=== PATIENT | female | born 1965 | race Caucasian/White ===

== ENCOUNTER 2025-02-12 12:07 | Emergency (ER) | payer BC, SELFPAY ==
[2025-02-12] VITALS (20 sets, daily range): BP systolic 121–154; BP diastolic 84–117; PULSE 51–157; RESP 0–21; TEMP 36.4; O2SAT 96–100; BMI 26.6
--- OUTSIDE RECORDS SUMMARY | 2025-02-12 12:10 | XMS_ITS | Clinical Summary ---
Author Organization [facility] Address [address] [place] [address] Care Team Providers Care [employer] Name Role Phone Ashley Coy Primary Care Provider Allergies Active Allergy Reactions Criticality Noted Date Comments Penicillins Rash,*Unknown - Childhood Rxn Unknown 04/19 Medications multivitamin folic acid 0.4 mg Take 1 Tablet by mouth once daily. Active aspirin (ECOTRIN) 81 mg enteric coated tabletIndications :Paroxysmal atrial fibrillation (HC) Take 1 Tablet (81 mg) by mouth once daily. 0 01/27/2023 Active valsartan (Diovan) 80 mg tabletIndications :HTN (hypertension) Take 1 Tablet (80 mg) by mouth two times daily. 180 Tablet 3 08/01/2024 Active carvediloL (COREG) 12.5 mg tabletIndications :Atrial fibrillation, unspecified type (HC),Cardiomyopat hy, unspecified type (HC) Take 1 Tablet (12.5 mg) by mouth two times daily. 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 Atrial fibrillation with RVR 09/10/2021 Cardiomyopathy 09/10/2021 Encounters Date Type Department Care Team Description 02/12/[address] [place] [address] Ben Talbot MD Appointment Request (Ashley Coy / Ben Talbot ) 02/12/2025 Nurse Triage [facility] [address] [facility] [address] Ashley Coy PA Irregular Heart Beat 02/09/2025 Nurse Triage [facility] [address] [facility] [address] Ashley Coy PA Fast Heartbeat from Last 3 Months Immunizations Immunization Administration Dates Next Due COVID-19 vaccine ([employer] 30mcg/0.3mL) PF, MDV 08/21/2021,12/07/2020,11/16/2020 Influenza, IIV4 06/27/2022,06/19/2021 Influenza, IIV4 (=>6mos) MDV 05/17/2020 Td (Age >=7 Years) 06/23/2001 Tdap 01/01/2022 Family History Medical History Relation Name Comments Cancer Brother Evan Lympho ma Cancer Father Kidney cancer, removed 1 kidney Coronary artery disease Father Cancer-breast Mother Cancer-colon Neg. 1 Heart Disease Neg. 2 Cancer-breast Sister Relation Name Status Comments Brother Father Mother Neg. 1 Neg. 2 Sister Social History Tobacco Use Types Packs/Day Years Used Date Smoking Tobacco: Never Smokeless Tobacco: Never Tobacco Cessation:Counseling Given: Yes Alcohol Use Standard Drinks/Week Comments Yes 0 (1 standard drink = 0.6 oz pure alcohol) Alcoholic Drinks/day: beer on the weekends Financial Resource Strain Answer Date R ecorded Difficulty of Paying Living Expenses Not on file 09/10/2021 Difficulty of Paying Living Expenses Not on file 09/10/2021 Comments No Sex and Gender Information Value Date Recorded Sex Assigned at Not on file Legal Sex Female 6:04 AM PHOTO CHECKER Gender Identity Not on file Sexual Orientation Not on file Obstetrics History Last Filed Vital Signs Vital Sign Reading Time Taken Comments Blood Pressure 170/93 08/01/2024 3:33 PM PHOTO CHECKER Pulse 69 08/01/2024 3:33 PM PHOTO CHECKER Temperature 36.7 C (98.1 F) 12/23/2021 6:34 AM CDT Respiratory Rate 16 12/23/2021 6:34 AM CDT Oxygen Saturation 99% 08/01/2024 3:33 PM PHOTO CHECKER Inhaled Oxygen Concentration - - Weight 74.8 kg (165 lb) 08/01/2024 3:33 PM PHOTO CHECKER Height 165.1 cm (5' 5) 03/30/2022 2:16 PM CDT Body Mass Index 27.46 03/30/2022 2:16 PM CDT Plan of Treatment Upcoming Encounters Date Type Department Care Team (Late st Contact Info) Description 02/13/2025 9:40 AM CDT Office Visit [facility] [address] [place] [address] Stephanie Jaramillo MD [address] [place] [address] Health Maintenance Due Date Last Done Comments Depression screening for age 12+ 1976 HIV for age 15-65 1979 Hepatitis C screening for age 18-79 1982 Pneumococcal series for age 50+ (1 of 2 - PCV) 1983 Colonoscopy through age 75 2009 Pap test for age 21-65 03/18/2013 03/18/2010, 2009 Zoster (shingles) series for age 50+ (1 of 2) 2014 BMI (ht and wt on same day) for age 18+ 03/30/2023 03/30/2022, 12/05/2021, 09/17/2021 COVID-19 vaccine series ( season) 2024 08/21/2021, 12/07/2020, 11/16/2020 Mammogram for age 45-75 02/17/2025 02/18/20 24, 12/30/2022, 07/28/2018, Additional history exists Influenza Vaccine (Season Ended) 2025 06/27/2022, 06/19/2021, 05/17/2020 Lipids for age 45-75 09/11/2026 09/11/2021, 03/06/20 10 Tetanus booster 01/02/2032 01/01/2022, 06/23/2001 RSV vaccine for adults or (1 - 1-dose 75+ series) 2039 Tdap Completed 01/01/2022 Hepatitis B series for 19+ Aged Out N o longer eligible based on patient's age to complete this topic Procedures Procedure Name Priority Date/Time Associated Diagnosis Comments XR MAMMO BILAT SCREENING Routine 02/18/2024 9:56 AM CDT Visit for screening mammogram LIPID PANEL Early AM 09/11/2021 6:59 AM PHOTO CHECKER [employer]ANCIAL [employer]ID DIRECTOR THIN PREP PAP SCREEN IMAGED Routine 03/18/2010 2:06 PM CDT Periodic pelvic examination from Last 3 Months or Most Recently Relevant to Health Maintenance Results * XR MAMMO BILAT SCREENING (02/18/2024 9:56 AM CDT) Anatomical Region Laterality Modality BREASTS, Breast Left, Breast Right Bilateral Mammography Impressions 02/21/2024 11:08 AM CDT There is no radiographic evidence for malignancy. Recommend annual mammograms. MAMMOGRAM ASSESSMENT: ACR 1 Negative PATIENTS: You will also receive a letter with your examination results in an easy to read format. If you have questions about your results, please contact your referring provider. Narrative 02/21/2024 11:08 AM CDT For Patients: As a result of the Century Cures Act, medical imaging exams and procedure reports are released immediately into your electronic medical record. You may view this report before your referring provider. If you have questions, please contact your health care provider. XR MAMMO BILAT SCREENING [[id number]] CLINICAL HISTORY: This is an asymptomatic 58 y.o. patient. INDICATION FOR EXAM: Mammogram Screening. TECHNIQUE: CC & MLO views were obtained. This study was evaluated with the assistance of Computer-Aided Detection. COMPARISON FILM: Yes 12/30/22 [employer] SE[employer] Navigation 07/28/18 FINDINGS: The breasts are heterogeneously dense, which may obscure small masses. There are no dominant masses, suspicious micro calcifications or areas of architectural distortion. Ashley MARTIN MAMMO Final R esult * Lipid Panel AM (09/11/2021 6:59 AM PHOTO CHECKER) CHOLESTEROL,TOTAL 184 100 - 199 mg/dL 09/11/2021 7:56 AM PHOTO CHECKER [facility] TRIGLYCERIDES 68 <150 mg/dL 09/11/2021 7:56 AM PHOTO CHECKER [facility] HDL CHOLESTEROL 71 >40 mg/dL 7:56 AM PHOTO CHECKER [facility] NON-HDL CHOLESTEROL 113 <145 mg/dl 09/11/2021 7:56 AM PHOTO CHECKER [facility] CHOL/HDL RATIO 2.59 <4.50 09/11/2021 7:56 AM PHOTO CHECKER [facility] LDL CHOLESTEROL 99 <=130 mg/dL 09/11/2021 7:56 AM PHOTO CHECKER [facility] VLDL CHOLESTEROL 14 <=30 mg/dL 09/11/2021 7:56 AM PHOTO CHECKER [facility] PROVIDER ORDERED STATUS RANDOM 09/11/2021 7:56 AM PHOTO CHECKER [facility] Blood BLOOD SPECIMEN / Unknown Venipuncture / Unknown 09/11/2021 6:59 AM PHOTO CHECKER 09/11/2021 7:25 AM PHOTO CHECKER us Cosme Peng MD CHEMISTRY Final Res ult [facility] [address] [place] [address], * (ABNORMAL) Pap Screening (03/18/2010 2:06 PM CDT) CYTOLOGY CYTOPATHOLOGY REPORT [facility] Status: Final Status [id number] CLINICAL INFORMATION Last Date of LMP :03/05/10 Last Pap Date :unsure Last Pap Result :NIL ABN Lamar/Bx Past 5 YRS :None Hormone Usage :None Menstrual Status :Regular Periods Lamar/Bx done today :No Additional Information :None given HPV Request :HPV if ASCUS ANCILLARY TESTING :HPV testing ordered. See Separate Report. SPECIMEN SOURCE :Cervical/vagina l ThinPrep Vial, screening SPECIMEN ADEQUACY :Satisfactory for evaluation Endocervical component present. INTERPRETATION/R ESULT Atypical squamous cells of undetermined significance (ASCUS) Cytology 1st Screener :gn Signed by : David Henry M.D. This specimen was screened by the FDA approved ThinPrep Imaging System and manually reviewed. NOTE: The Pap test is a screening technique, not a diagnostic procedure. It is used primarily to screen for squamous cancers and precursor lesions. Published studies have shown that it is subject to both false negative and false positive results. The pap test should not be used as the sole means to diagnose or exclude pre-malignant and malignant lesions. COLLECTED: ACCESSIONED: 03/19/10 SIGNED: 03/21/10 [facility] PAP [place] CODE ASCUS [facility] Cervical/Vaginal (Cervical/Vagina l) 03/18/2010 2:06 PM CDT 03/18/2010 2:02 PM CDT Sarabjit Louis MD PATHOLOGY/CYTOLOGY Fin al Result [facility] INTERNAL ZIP [address] [place] [id number] from Last 3 Months or Most Recently Relevant to Health Maintenance Insurance [facility] [place] [employer] [id number] [place] Advance Directives * Full Code (Latest Code Status on File) Date Activated Date Inactivated Comments 12/22/2021 12:18 PM 12/23/2021 12:10 PM Question Answer Comments Code Status Discussion: Other (specify in commen ts): * Full Code Date Activated Date Inactivated Comments 09/10/2021 9:44 PM 09/12/2021 2:47 PM Question Answer Comments Code Status Discussion: Reviewed Preferences Care Teams [employer] Relationship Specialty Start Date End Date Ashley Coy PA [address] [facility] [place] [address] PCP - General Physician Handyperson 09/17/21
--- NOTE | 2025-02-12 12:34 | ED_ITS ---
HPI - Arrhythmia/Palpitations General Chief Complaint: Arrhythmia/Palpitations Stated Complaint: -unregular heart beat Time Seen by Provider: 02/12/25 12:13 History of Present Illness HPI narrative: This 59-year-old female comes in reporting irregular heartbeat. She arrives here with heart rate at around 145-150 beats per minute. She states that she does have a history of atrial fibrillation and was cardioverted in the past and this was followed by an ablation. She has been doing well since then. She is not on any anticoagulants except for baby aspirin. She does not report any chest pain or shortness of breath. She does not have any lightheadedness. Related Data Home Medications ?Medication ?Instructions ?Recorded ?Confirmed baby asa 81 mg PO DAILY 02/12/2501/22 carvedilol 12.5 mg tablet 12.5 mg PO BID 02/12/2501/22 losartan 25 mg tablet 25 mg PO DAILY 02/12/2501/22 Previous Rx's ?Medication ?Instructions ?Recorded apixaban 5 mg (74 tabs) tablets in See Rx Instructions PO .COMPLEX 02/12/25 a dose pack ([employer] DVT-PE Treat #74 ea 30D Start) diltiazem HCl 180 mg 180 mg PO DAILY #30 caps capsule,extended release 24 hr Allergies Allergy/AdvReac Type Severity Reaction Status Date / Time Penicillins Allergy Mild rash Verified 02/12/25 12:34 Review of Systems Status of ROS: Reports: 10 or more systems reviewed and unremarkable except as noted in History and below Narrative: Constitutional: No fevers, no weight gain or loss. Eyes: No discharge. No vision changes. HENT: No congestion, no sore throat, no ear pain. Cardiovascular: No chest pain. Irregular heartbeat. Respiratory: No shortness of breath, no wheezes, no cough. Gastrointestinal: No abdominal pain, no vomiting, no diarrhea. Genitourinary: No dysuria, no hematuria. Musculoskeletal: Normal range of motion. Skin: No rashes, no pruritis. Neurological: No dizziness, weakness, sensory change, speech change. Endo/Heme/Allergies: No bruising or bleeding. No polydipsia. Pysch: no suicidality, no anxiety, no insomnia. All other systems reviewed and are negative. [facility] Medical History (Updated 02/12/25 @ 15:50 by Cuate Naik MD) Atrial fibrillation ?I48.91 - Unspecified atrial fibrillation (ICD-10) Hypertension ?I10 - Essential (primary) hypertension (ICD-10) Surgical History (Updated 02/12/25 @ 12:53 by Lacie Arreguin RN) History of cardiac ablation for atrial fibrillation ?Z98.890 - Other specified postprocedural states (ICD-10) ?I48.91 - Unspecified atrial fibrillation (ICD-10) Social History How often do you have a drink containing alcohol: never AUDIT-C Alcohol total score: 0 Non-prescribed substance use: denies use Exam Narrative: Exam Narrative: Constitutional: Well-developed, well-nourished, no acute distress. HEENT: Normocephalic, atraumatic. Neck: Normal range of motion. Nontender. Supple. Heart: No murmurs. Tachycardia. Intact distal pulses. Lungs: Clear to auscultation. No chest discomfort. No wheezes, rhonchi, or rales. Abdomen: Normal bowel sounds. Nontender. No rebound tenderness. Genitalia: Deferred. Back: No midline tenderness. Normal range of motion. Extremities: Normal range of motion. No injury. Skin: Intact. No rash. Warm. No erythema or pallor. Neurologic: No altered sensation. No weakness. Alert and oriented. Psychiatric: No suicidality. No anxiety or depression. No insomnia. Nursing notes and vitals signs are reviewed. Const: Vital Signs, click to edit/add: Vital Signs - 24 hr 02/12/25 12:29 02/12/25 13:23 02/12/25 13:30 Temperature 97.6 F Pulse Rate 117 H 157 H Pulse Rate [Pulse Oximeter] 147 H Respiratory Rate 18 18 Blood Pressure Blood Pressure [Le ft Upper Arm] 154/117 H Pulse Oximetry 100 98 98 Oxygen Delivery Me thod Room Air 02/12/25 13:32 02/12/25 13:45 02/12/25 14:00 Temperature Pulse Rate 84 156 H 157 H Pulse Rate [Pulse Oximeter] Respiratory Rate 9 L 10 L 8 L Blood Pressure 132/102 H Blood Pressure [Le ft Upper Arm] Pulse Oximetry 98 99 100 Oxygen Delivery Me thod 02/12/25 14:02 02/12/25 14:15 02/12/25 14:30 Temperature Pulse Rate 156 H 156 H 153 H Pulse Rate [Pulse Oximeter] Respiratory Rate 16 16 3 L Blood Pressure 136/101 H Blood Pressure [Le ft Upper Arm] Pulse Oximetry 98 99 98 Oxygen Delivery Me thod 02/12/25 14:32 Temperature Pulse Rate 147 H Pulse Rate [Pulse Oximeter] Respiratory Rate 5 L Blood Pressure 140/111 H Blood Pressure [Le ft Upper Arm] Pulse Oximetry 98 Oxygen Delivery Me thod Course Vital Signs Vital signs: Initial Vital Signs Temperature 97.6 F 02/12/25 12:29 Temperature Source Temporal Artery Scan 02/12/25 12:29 Pulse Rate 147 H 02/12/25 12:29 Respiratory Rate 18 02/12/25 12:29 Blood Pressure 154/117 H 02/12/25 12:29 Blood Pressure Mean 129 H 02/12/25 12:29 Blood Pressure Position Sitting 02/12/25 12:29 Pulse Oximetry 100 02/12/25 12:29 Oxygen Delivery Method Room Air 02/12/25 12:29 Vital Signs Temperature 97.6 F 02/12/25 12:29 Pulse Rate 147 H 02/12/25 12:29 Respiratory Rate 18 02/12/25 12:29 Blood Pressure 154/117 H 02/12/25 12:29 Pulse Oximetry 100 02/12/25 12:29 Oxygen Delivery Method Room Air 02/12/25 12:29 Temperature 97.6 F 02/12/25 12:29 Pulse Rate 147 H 02/12/25 14:32 Respiratory Rate 5 L 02/12/25 14:32 Blood Pressure 140/111 H 02/12/25 14:32 Pulse Oximetry 98 02/12/25 14:32 Oxygen Delivery Method Room Air 02/12/25 12:29 Medications Administered Medications: Discontinued Medications Generic Name Dose Route Start Last Admin Trade Name Freq PRN Reason Stop Dose Admin Diltiazem HCl 20 mg 02/12/25 12:32 02/12/25 12:58 Diltiazem 5 Mg/Ml Inj IVP 02/12/25 12:33 20 mg ONCE ONE Administration Diltiazem HCl 20 mg 02/12/25 14:57 02/12/25 15:03 Diltiazem 5 Mg/Ml Inj IVP 02/12/25 14:58 20 mg ONCE ONE Administration Sodium Chloride 1,000 mls @ 1,000 mls/hr 02/12/25 12:45 02/12/25 14:58 0.9 % Sodium Chloride 1000 Ml IV 02/12/25 13:44 Infused .Q1H UZMA Infusion Magnesium Sulfate/Dextrose 1 gm 02/12/25 12:45 02/12/25 13:05 Magnesium Sulf 1 G/100 Ml IVPB 02/12/25 12:46 1 gm ONCE ONE Administration Metoprolol Tartrate 25 mg 02/12/25 13:44 02/12/25 13:49 Metoprolol Tartrate 25 Mg Tablet PO 02/12/25 13:45 25 mg ONCE ONE Administration MDM - Arrhythmia/Palpitations MDM Narrative Medical decision making narrative: This patient comes in with atrial fibrillation and rapid ventricular response. She is not reporting any chest pain, lightheadedness, or shortness of breath. She has had symptoms like this in the past and was cardioverted and subsequently had an ablation. This was about 3 years ago. Her symptoms started almost 3 days ago so she is not a candidate for synchronized electrocardioversion as she is not on any anticoagulation. An IV was established where she did receive 20 mg of diltiazem. This brought her rate into the normal range but she continued in atrial fibrillation. This medicine wore off and she reverted back to tachycardia. She did receive an oral dose of metoprolol 25 mg and states that she does take sotalol 12.5 mg twice daily. A 2nd dose of diltiazem was administered with similar rate control results as she continued in atrial fibrillation. Lab results returned with normal findings. Her troponin returns at 0. I did discuss options going forward and stress the basic guidelines of rate control and anticoagulation. The patient states that she wants to return home. I did provide a prescription for diltiazem 180 mg. She did receive the 1st tablet of Eliquis here and a prescription for starter pack. I advised her regarding signs and symptoms that would indicate a need for return re- evaluation. Lab Data Labs: Lab Results 02/12/25 Range/Units 12:22 WBC 5.80 (4.50-11.00) K/uL RBC 4.34 (4.00-5.20) m/uL Hgb 13.9 (12.0-16.0) gm/dL Hct 41.1 (33.0-51.0) % MCV 95 (80-100) fL MCH 32 (26-34) pg MCHC 34 (32-36) gm/dL RDW Coeff of Tej 12.7 (11.5-15.5) % Plt Count 247 (140-440) K/uL Neut % (Auto) 65.2 (42.0-72.0) % Lymph % (Auto) 26.2 (20-44) % [facility] % (Auto) 7.1 (0.0-11.0) % Eos % (Auto) 1.0 (0.0-7.0) % Baso % (Auto) 0.3 (0.0-3.0) % Neut # (Auto) 3.78 (1.7-7.0) K/uL Lymph # (Auto) 1.52 (0.90-2.90) K/uL [facility] # (Auto) 0.40 (0.00-0.90) K/UL Eos # (Auto) 0.06 (0.00-0.50) K/uL Baso # (Auto) 0.02 (0.00-0.30) K/uL Abs Immat Gran (auto) 0.01 (0.00-0.30) K/uL Imm/Tot Granulo (auto) 0.2 % Sodium 140 (135-149) mmol/L Potassium 4.0 (3.6-5.1) mmol/L Chloride 107 (96-114) mmol/L Carbon Dioxide 23 (20-32) mmol/L Anion Gap 10 (7-15) mEq/L BUN 15 (7-30) mg/dL Creatinine 0.9 (0.5-1.5) mg/dL Estimated Creat Clear 59.81 Estimated GFR 73 ml/min Glucose 115 (60-115) mg/dL Calcium 9.3 (8.4-10.6) mg/dL POC Troponin I 0.01 (0.01-0.04) ng/ml ECG Data Attestation: I personally reviewed and interpreted this ECG as follows: Interpretation: Atrial fibrillation with rapid ventricular response. Rate is 147 beats per minute. There are no specific ST or T-wave abnormalities. Discharge Plan Discharge Clinical Impression: Atrial fibrillation with rapid ventricular response Patient Disposition: Home, Self-Care Condition: Stable Additional Instructions: Continue current medications and add Eliquis and diltiazem as prescribed. 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 Prescriptions: New Eliquis DVT-PE Treat 30D Start 5 mg (74 tabs) tablets,dose pack See Rx Instructions PO .COMPLEX Qty: 74 0RF Rx Instructions: orally per package directions diltiazem HCl 180 mg capsule,extended release 24hr 180 mg PO DAILY Qty: 30 2RF No Action carvedilol 12.5 mg tablet 12.5 mg PO BID baby asa 81 mg PO DAILY losartan 25 mg tablet 25 mg PO DAILY Follow Up/Referrals: Provider,Not a Local [Primary Care Provider, Family Practice] Stand Alone Forms: [employer] Info Instructions
[2025-02-12 12:49] LABS: Troponin, Point-of-Care* 0.01 ng/ml (0.01-0.04)
[2025-02-12 12:54] LABS: Basophils Absolute Auto 0.02 K/uL (0.00-0.30); Basophils Percent Auto 0.3 % (0.0-3.0); Eosinophils Absolute Auto 0.06 K/uL (0.00-0.50); Hematocrit 41.1 % (33.0-51.0); Hemoglobin* 13.9 gm/dL (12.0-16.0); Immature Granulocytes Abs Auto 0.01 K/uL (0.00-0.30); Immature Granulocytes Pct Auto 0.2 %; Lymphocytes Absolute Auto 1.52 K/uL (0.90-2.90); Lymphocytes Percent Auto 26.2 % (20-44); Mean Corpuscular HGB Conc 34 gm/dL (32-36); Mean Corpuscular Hemoglobin 32 pg (26-34); Mean Corpuscular Volume 95 fL (80-100); Monocytes Percent Auto 7.1 % (0.0-11.0); Neutrophils Absolute Auto 3.78 K/uL (1.7-7.0); Neutrophils Percent Auto 65.2 % (42.0-72.0); Platelet Count* 247 K/uL (140-440); RDW Coefficient of Variation % 12.7 % (11.5-15.5); Red Blood Count 4.34 m/uL (4.00-5.20)
[2025-02-12] MEDS: dilTIAZem 5 MG/ML inj 20 MG IVP ×2 (12:58→15:03)
[2025-02-12] MEDS: 0.9 % SODIUM CHLORIDE 1000 ml 1,000 ML IV (12:59)
[2025-02-12 13:00] LABS: Slide Review Reflex No
[2025-02-12 13:06] LABS: Chloride* 107 mmol/L (96-114); Sodium* 140 mmol/L (135-149)
[2025-02-12 13:09] LABS: Anion Gap 10 mEq/L (7-15); Blood Urea Nitrogen* 15 mg/dL (7-30); Carbon Dioxide* 23 mmol/L (20-32); Creatinine* 0.9 mg/dL (0.5-1.5); Est. Creatinine Clearance* 59.81; Estimated Glomerular Filt Rate 73 ml/min
[2025-02-12 13:10] LABS: Calcium* 9.3 mg/dL (8.4-10.6); Glucose* 115 mg/dL (60-115)
[2025-02-12] MEDS: METOPROLOL TARTRATE 25 MG TABLET PO (13:49)
[2025-02-12] MEDS: APIXABAN 5 MG TABLET 10 MG PO (16:00)
== END 2025-02-12 16:43 | disposition home or self-care (01) ==
PROVIDERS: Emergency Provider Emergency Medicine Emergency Medical Services; PCP Physician Assistant Medical
DX: I48.91 Unspecified atrial fibrillation (principal)
CPT/HCPCS: 36415; 80048; 84484; 85025; 93005; 96361; 96374; 96375; 99284; A9270; J3475; J7030